=== PATIENT | male | born 1950 | race Caucasian/White ===

== ENCOUNTER → 2017-02-28 | Outpatient (CLI) | payer OTHER ==
[2017-02-28 12:40] LABS: BASO % 0.5 %; BASO ABS # 0.02 K/uL (0-0.2); COMPLETE YES; EOS % 4.5 %; HEMATOCRIT 36.8 % (42-52); IG% 0.2 %; LYMPH % 35.7 %; LYMPH ABS # 1.58 K/uL (1.2-3.4); MEAN CELL VOLUME 83.8 fL (80-100); MEAN CORPUSCULAR HGB CONC 33.4 g/dl (32-36); MEAN PLATELET VOLUME 9.9 fL (7.4-10.4); MONO % 11.1 %; PLATELET COUNT 261 K/uL (130-400); RED BLOOD COUNT 4.39 M/uL (4.7-6.1); WHITE BLOOD COUNT 4.42 K/uL (4.8-10.8)
[2017-02-28 13:02] LABS: ALT/SGPT 32 U/L (12-78); AST/SGOT 22 U/L (15-37); BLOOD UREA NITROGEN 23 mg/dl (7-18); BUN/CREATININE RATIO 19.3 (10-20); CARBON DIOXIDE 23 mmol/L (21-32); CHLORIDE 108 mmol/L (98-107); CHOLESTEROL 159 mg/dl (0-200); GLUCOSE 128 mg/dl (70-99); POTASSIUM 4.1 mmol/L (3.5-5.1); SODIUM 142 mmol/L (136-145); TRIGLYCERIDES 134 mg/dl (0-150); VERY LOW DENSITY LIPOPROT CALC 27 mg/dl
[2017-02-28 13:08] LABS: CALCIUM 8.9 mg/dl (8.5-10.1)
[2017-02-28 13:13] LABS: ALKALINE PHOSPHATASE 75 U/L (45-117); HDL CHOLESTEROL 53 mg/dl
[2017-02-28 13:29] LABS: ESTIMATED AVERAGE GLUCOSE 134 mg/dl; HA1C FLAG Normal (Normal)
== END | disposition home or self-care (01) ==
LOC: C.LABSPEC 12:14
PROVIDERS: ATTEND Internal Medicine
DX: R73.9 Hyperglycemia, unspecified (principal); E78.5 Hyperlipidemia, unspecified; M19.90 Unspecified osteoarthritis, unspecified site; E04.2 Nontoxic multinodular goiter

== ENCOUNTER → 2017-03-21 | Outpatient (CLI) | payer OTHER ==
--- NOTE | 2017-03-21 16:20 | ECHOCARDIOGRAM REPORT ---
*NOTICE TO RECEIVING CONSTITUTION PARTY AGENCY This information is strictly Confidential and protected under [place] law. [place] law prohibits you from making any further disclosure of this information unless further disclosure is expressly permitted by the written consent of the person to whom it pertains or is authorized by law. A general authorization for the release of medical or other information is not sufficient for this purpose. Hospital accepts no responsibility if the information is made available to any other person, INCLUDING THE PATIENT. Interpretation Summary * Name: CHRIS ALLRED Study Date: 03/21/2017 12:57 PM BP: 148/76 mmHg * Patient Location: [facility] HR: 69 * : 1950 (M/d/yyyy) Gender: Male Height: 69 in * Age: 66 yrs Ethnicity: CA Weight: 168 lb * Ordering Physician: Pete Jacobs * Referring Physician: Pete Jacobs * * BSA: 1.9 m2 * -- Conclusions -- * Left ventricular systolic function is normal. * No regional wall motion abnormalities noted. * Ejection Fraction = 65-70%. * There is mild concentric left ventricular hypertrophy. * Grade I diastolic dysfunction, (abnormal relaxation pattern). * Moderate valvular aortic stenosis. * Aortic valve area calculated at 1.1 cm2 by the continuity equation. * Mild aortic regurgitation. * Compared with 03/15/2016 study, no significant change. Procedure Details * Left Ventricle The left ventricle is normal in size. There is mild concentric left ventricular hypertrophy. Ejection Fraction = 65-70%. Left ventricular systolic function is normal. No regional wall motion abnormalities noted. * Right Ventricle The right ventricle is grossly normal size. The right ventricular systolic function is normal as assessed by tricuspid annular plane systolic excursion (TAPSE) (normal >1.5 cm). * Atria The left atrial size is normal. Right atrial size is normal. There is no evidence of atrial septal defect, but resolution does not allow assessment for a patent foramen ovale. * Mitral Valve The mitral valve is normal in structure and function. There is no mitral valve stenosis. Significant mitral regurgitation is absent. * Tricuspid Valve The tricuspid valve is normal in structure and function. There is no tricuspid stenosis. Significant tricuspid regurgitation is absent. * Aortic Valve Moderate valvular aortic stenosis. Aortic valve area calculated at 1.1 cm2 by the continuity equation. Mild aortic regurgitation. * Pulmonic Valve The pulmonary valve is not well seen, but the Doppler examination is normal without significant regurgitation or stenosis. * Great Vessels The aortic root is normal size. The pulmonary is not well visualized. * Pericardium/Pleural There is no pericardial effusion. * Great Vessels Normal inferior vena cava size and collapsability with sniff indicates a normal right atrial pressure of 3 mmHg * Left Ventricular Diastolic Function Grade I diastolic dysfunction, (abnormal relaxation pattern). * * MMode 2D Measurements and Calculations * IVSd 1.1 cm * * LVIDd 4.1 cm * LVIDs 2.5 cm * LVPWd 1.3 cm * * IVS/LVPW 0.82 * FS 39.3 % * EDV(Teich) 73.6 ml * ESV(Teich) 21.9 ml * EF(Teich) 70.3 % * * EDV(cubed) 68.2 ml * ESV(cubed) 15.3 ml * EF(cubed) 77.6 % * * LV mass(C)d 167.0 grams * LV mass(C)dI 87.1 grams/m\S\2 * * SV(Teich) 51.7 ml * SI(Teich) 27.0 ml/m\S\2 * SV(cubed) 52.9 ml * SI(cubed) 27.6 ml/m\S\2 * * Ao root diam 3.2 cm * Ao root area 8.1 cm\S\2 * * LVOT diam 2.0 cm * LVOT area 3.0 cm\S\2 * * LVAd ap4 34.8 cm\S\2 * LVLd ap4 9.2 cm * EDV(MOD-sp4) 110.5 ml * EDV(sp4-el) 112.3 ml * LVAs ap4 16.4 cm\S\2 * LVLs ap4 7.5 cm * ESV(MOD-sp4) 31.8 ml * ESV(sp4-el) 30.5 ml * EF(MOD-sp4) 71.2 % * EF(sp4-el) 72.9 % * * LVAd ap2 23.8 cm\S\2 * LVLd ap2 8.4 cm * EDV(MOD-sp2) 54.7 ml * EDV(sp2-el) 57.1 ml * LVAs ap2 13.8 cm\S\2 * LVLs ap2 6.6 cm * ESV(MOD-sp2) 25.0 ml * ESV(sp2-el) 24.3 ml * EF(MOD-sp2) 54.4 % * EF(sp2-el) 57.4 % * * LVLd %diff -90 % * EDV(MOD-bp) 82.3 ml * LVLs %diff -13.71 % * ESV(MOD-bp) 29.4 ml * EF(MOD-bp) 64.3 % * * SV(MOD-sp4) 78.7 ml * SI(MOD-sp4) 41.0 ml/m\S\2 * * SV(MOD-sp2) 29.8 ml * SI(MOD-sp2) 15.5 ml/m\S\2 * * SV(MOD-bp) 53.0 ml * SI(MOD-bp) 27.6 ml/m\S\2 * * SV(sp4-el) 81.8 ml * SI(sp4-el) 42.6 ml/m\S\2 * * SV(sp2-el) 32.8 ml * SI(sp2-el) 17.1 ml/m\S\2 * * * Doppler Measurements and Calculations * MV E max len 83.6 cm/sec * MV A max len 126.7 cm/sec * * MV E/A 0.66 * * MV dec time 0.28 sec * * Ao V2 max 287.8 cm/sec * Ao max PG 33.5 mmHg * Ao max PG (full) 26.6 mmHg * Ao V2 mean 217.3 cm/sec * Ao mean PG 22.3 mmHg * Ao mean PG (full) 18.2 mmHg * Ao V2 VTI 71.7 cm * GIANA(I,A) 1.3 cm\S\2 * GIANA(I,D) 1.3 cm\S\2 * GIANA(V,A) 1.4 cm\S\2 * GIANA(V,D) 1.4 cm\S\2 * * AI max len 429.7 cm/sec * AI max PG 73.8 mmHg * AI dec slope 328.6 cm/sec\S\2 * AI P1/2t 382.9 msec * * LV V1 max PG 6.9 mmHg * LV V1 mean PG 4.1 mmHg * * LV V1 max 131.6 cm/sec * LV V1 mean 94.4 cm/sec * LV V1 VTI 30.8 cm * * SV(Ao) 579.6 ml * SI(Ao) 302.2 ml/m\S\2 * SV(LVOT) 92.4 ml * SI(LVOT) 48.2 ml/m\S\2 * *
== END | disposition home or self-care (01) ==
LOC: C.CPL 12:43
PROVIDERS: ATTEND Internal Medicine
DX: I35.0 Nonrheumatic aortic (valve) stenosis (principal)

== ENCOUNTER → 2017-08-23 | Outpatient (CLI) | payer OTHER ==
[2017-08-23 12:55] LABS: ESTIMATED AVERAGE GLUCOSE 131 mg/dl; HA1C FLAG Normal (Normal)
[2017-08-23 13:35] LABS: ALT/SGPT 33 U/L (12-78); AST/SGOT 17 U/L (15-37); BLOOD UREA NITROGEN 19 mg/dl (7-18); BUN/CREATININE RATIO 17.7 (10-20); CALCIUM 8.4 mg/dl (8.5-10.1); CARBON DIOXIDE 25 mmol/L (21-32); CHLORIDE 108 mmol/L (98-107); CREATININE 1.05 mg/dl (0.60-1.40); GLUCOSE 117 mg/dl (70-99); POTASSIUM 3.8 mmol/L (3.5-5.1); SODIUM 139 mmol/L (136-145)
[2017-08-23 13:47] LABS: ALB/GLOB RATIO 0.9 (0.9-2); ALKALINE PHOSPHATASE 78 U/L (45-117); CHOLESTEROL 161 mg/dl (0-200); CHOLESTEROL/HDL RATIO 2.6; HDL CHOLESTEROL 63 mg/dl; TRIGLYCERIDES 142 mg/dl (0-150); VERY LOW DENSITY LIPOPROT CALC 28 mg/dl
[2017-08-23 15:12] LABS: THYROXINE (T4) 6.4 mcg/dl (4.5-10.9)
== END | disposition home or self-care (01) ==
LOC: C.LABSPEC 12:06
PROVIDERS: ATTEND Internal Medicine
DX: E78.5 Hyperlipidemia, unspecified (principal); R73.9 Hyperglycemia, unspecified; E04.2 Nontoxic multinodular goiter

== ENCOUNTER → 2018-01-31 | Outpatient (CLI) | payer OTHER | END | disposition home or self-care (01) | LOC: C.PATHSPEC 17:50 | PROVIDERS: ATTEND Plastic Surgery | DX: L82.1 Other seborrheic keratosis (principal); D18.01 Hemangioma of skin and subcutaneous tissue ==

== ENCOUNTER 2023-07-11 09:24 | Observation (INO) ==
--- NOTE | 2023-06-14 12:03 | PAT Medication Instructions ---
Medication Instructions Date of Service June 14, 2023 Home Medications Medication Instructions Recorded sumatriptan succinate 50 mg tablet See Rx Instructions PO .COMPLEX 10/05/22 #10 tabs atorvastatin 40 mg tablet 40 mg PO HS #90 tabs 01/02/23 cholecalciferol (vitamin D3) 50 mcg (2,000 unit) capsule 2,000 unit PO QAM coenzyme Q10 50 mg capsule 50 mg PO QAM multivitamin (Daily Multi-Vitamin tablet) 1 tab PO QAM glucosamine-chondroitin 250 mg-200 mg tablet (Osteo Bi-Flex) 1 tab PO QAM saw palmetto 450 mg capsule 450 mg PO QAM turmeric 400 mg capsule 400 mg PO QAM vitamin B complex 1 tab PO QAM aspirin 81 mg tablet 81 mg PO QAM sumatriptan succinate 50 mg tablet See Rx Instructions PO .COMPLEX atorvastatin 40 mg tablet 40 mg PO HS krill 1,000 mg-omega-3 170 mg-dha 50 mg-epa 80 [id number] capsule (krill oil) 1 cap PO QAM omeprazole 20 mg capsule,delayed release 20 mg PO HS Continue as directed sumatriptan succinate 50 mg tablet See Rx Instructions PO .COMPLEX STOP taking 2 weeks before surgery (or as soon as possible if surgery is within 2 weeks) coenzyme Q10 50 mg capsule 50 mg PO QAM glucosamine-chondroitin 250 mg-200 mg tablet (Osteo Bi-Flex) 1 tab PO QAM saw palmetto 450 mg capsule 450 mg PO QAM turmeric 400 mg capsule 400 mg PO QAM krill 1,000 mg-omega-3 170 mg-dha 50 mg-epa 80 [id number]-[id number] capsule (krill oil) 1 cap PO QAM DO NOT take the morning of surgery cholecalciferol (vitamin D3) 50 mcg (2,000 unit) capsule 2,000 unit PO QAM multivitamin (Daily Multi-Vitamin tablet) 1 tab PO QAM vitamin B complex 1 tab PO QAM Take morning of surgery With a small sip of water, OTHERWISE NOTHING TO EAT OR DRINK AFTER MIDNIGHT: aspirin 81 mg tablet 81 mg PO QAM (unless directed otherwise by surgeon) Take evening before surgery atorvastatin 40 mg tablet 40 mg PO HS omeprazole 20 mg capsule,delayed release 20 mg PO HS Other Notes If you have any questions please call us at [phone] or [phone] or [phone] or [phone]
--- NOTE | 2023-06-15 12:01 | Anesthesiology Consultation ---
Date of Service June 15, 2023 Assessment & Plan (1) Encounter for pre-operative examination: - Infectious disease screening: Per assessment on 06/15/23: No known infectious disease contacts or current infectious disease symptoms. No noted Covid positive test result in past 90 days. - Outpatient joint assessment: Pt currently scheduled for inpatient pathway. If surgeon requests review for outpatient joint pathway, patient is not recommended candidate for outpatient joint program from anesthesia standpoint. - Cardiology visit (02/21/23): "S/P aortic valve replacement.. in setting of severe ; TAVR 11/2020 [facility].. Nonobstructive CAD.. Dyslipidemia.. Patient is doing well from a cardiac standpoint. Recent echocardiogram with appropriately functioning TAVR. He remains active without limiting cardiac symptoms. On exam today appears well perfused without signs of heart failure. Reviewed SBE prophylaxis. Continue ASCVD risk factor modification. Continue aspirin, statin." - Possible difficult intubation: Hx trach at age 8 d/t "throat infection", hospitalized for approximately a month (trach removed sometime during the hospitalization) Chart Review Chart Review: Acceptable Risk for Surgery and Patient seen in Pre Admission Testing Teaching & Discussion Pre-Anesthesia Teaching/Discussion Notes: Instructed NPO after midnight before surgery,except medications with 15 cc of water. Medication instructions provided according to the PAT guidelines. History Surgery Operation Date: 07/11/23 07:00 Proposed Procedures p Left Total Knee Arthroplasty - Delfino Nguyen MD Height/Weight Height: 5 ft 9 in Weight: 75.3 kg Allergies Allergy/AdvReac Type Severity Reaction Status Date / Time No Known Allergies Allergy Unknown Verified 06/14/23 11:17 Medications Home Medications Medication Instructions Recorded Confirmed Last Taken cholecalciferol (vitamin D3) 50 2,000 unit PO QAM 08/05/19 06/14/23 12/01/20 mcg (2,000 unit) capsule coenzyme Q10 50 mg capsule 50 mg PO QAM 10/09/20 06/14/23 12/01/20 multivitamin (Daily Multi-Vitamin 1 tab PO QAM 10/09/20 06/14/23 12/01/20 tablet) glucosamine-chondroitin 250 mg-200 1 tab PO QAM 11/27/20 06/14/23 12/01/20 mg tablet (Osteo Bi-Flex) saw palmetto 450 mg capsule 450 mg PO QAM 11/27/20 06/14/23 12/01/20 turmeric 400 mg capsule 400 mg PO QAM 11/27/20 06/14/23 12/01/20 vitamin B complex 1 tab PO QAM 11/27/20 06/14/23 12/01/20 aspirin 81 mg tablet 81 mg PO QAM 04/28/22 06/14/23 Unknown sumatriptan succinate 50 mg tablet See Rx Instructions PO .COMPLEX 10/05/22 06/14/23 Unknown #10 tabs atorvastatin 40 mg tablet 40 mg PO HS #90 tabs 01/02/23 06/14/23 Unknown krill 1,000 mg-omega-3 170 mg-dha 1 cap PO QAM 06/14/23 06/14/23 Unknown 50 mg-epa 80 [id number]-bxple capsule (krill oil) omeprazole 20 mg capsule,delayed 20 mg PO HS 06/14/23 06/14/23 Unknown release Past Medical History Medical History Acid reflux CAD (coronary artery disease) 2019 cardiac cath: Nonocclusive CAD (pLAD: 30%, OM1: 40%) Chronic anemia Degenerative arthritis of knee, bilateral Desmoid tumor of abdomen "benign" Enlarged thyroid History of aortic valve stenosis TAVR ([place], 2020) History of melanoma in situ s/p excision (in office) Hypercholesterolemia Osteoarthritis Exercise / Class Metabolic Activity II 4-5 Yardwork/Stairs/Walk up hill (one FS (no CP, no SOB)) Past Family History Family History Father Cancer Mother Natural Other No family history of adverse response to anesthesia Past Surgical History Surgical History History of abdominal surgery Desmoid tumor removal and partial colectomy ([facility], approximately 1993) History of arthroscopy of left knee History of arthroscopy of right knee History of cardiac cath 10/2019- Nonocclusive coronary artery disease (pLAD: 30%, OM1: 40%) History of colonoscopy with polypectomy History of esophagogastroduodenoscopy (EGD) History of repair of anterior cruciate ligament of right knee History of sigmoidoscopy History of tooth extraction History of tracheostomy as a child Trach at age 8 d/t "throat infection", hospitalized for approximately a month (trach removed sometime during the hospitalization) History of wisdom tooth extraction Hx of LASIK S/P aortic valve replacement TAVR (11/2020, [facility]) S/P thyroid biopsy Past Anesthesia History No Hx of Anesthesia Complications and No Family Hx of Anesthesia Complications History of PONV No Hx of PONV and Hx of Motion Sickness (Situational) Social History Smoking Status: Never smoker Do You Dip or Chew Tobacco: No Hx Alcohol Use: Yes ("once a month") Alcohol type: beer and wine alcohol intake frequency: a few times a month Hx Substance Use: No substance use type: does not use Review of Systems Patient denies chest pain, shortness of breath, dyspnea on exertion, fever, chills, cough, wheezing, palpitations. Physical Exam Vital Signs VITALS BP 150/87 P 94 TEMP 98.8 SP02 94%RA RESP 16 PHYSICAL Full cervical extension range of motion. Full TMJ range of motion. TMD 3 finger breaths Mallampati Score 1 + Trach scar noted Dentition: intact, upper right side bridge Lungs: clear throughout to auscultation Cardiac: regular rate and rhythm, II/ systolic murmur Spine: normal Carotid arteries: negative bruit Extremities: no LE edema Lab Results Anesthesia Preop Results Results Anesthesia Widget: WBC 5.26 K/ul (4.8-10.8) 06/15/23 Hgb 12.9 g/dl (14.0-18.0) L 06/15/23 Hct 39.7 % (42.0-52.0) L 06/15/23 Plt 207 K/uL (130-400) 06/15/23 Na 137 mmol/L (136-145) 06/15/23 K 4.1 mmol/L (3.5-5.1) 06/15/23 Cl 105 mmol/L (98-107) 06/15/23 CO2 27 mmol/L (21-32) 06/15/23 BUN 18 mg/dl (6-23) 06/15/23 Creat 1.24 mg/dl (0.6-1.4) 06/15/23 Glucose Level 131 mg/dl (70-99(Fasting)) H 06/15/23 PT 11.0 Seconds (9.0-12.0) 06/15/23 PTT 28.3 Seconds (21.0-31.0) 06/15/23 INR 1.0 (0.9-1.1) 06/15/23 Blood Type O Positive 06/15/23 Antibody Screen NEGATIVE 06/15/23 Testing Electrocardiogram Date: 07/27/22 Findings: + NSR @ (62) Chest X-Ray Date: 06/15/23 FINDINGS: No lines and tubes are seen. Calcified aortic knob is seen. Aortic valvular prosthesis is seen. The lungs are clear. No evidence of pleural effusion or pneumothorax. IMPRESSION: No acute chest disease. Echocardiogram Date: 02/06/23 LVEF 50-55%. No regional wall motion abnormality. Mild concentric LVH. Well- seated TAVR with expected transvalvular gradients. Mild paravalvular AI. Mild MR. Normal estimated PASP. Cardiac Catheterization Date: 11/05/19 Nonocclusive coronary artery disease (pLAD: 30%, OM1: 40%). Normal left heart filling pressures. Large, dominant RCA. On LVtoaorta pullback, the peakpeak gradient is 34 mmHg.
--- NOTE | 2023-07-08 08:26 | History & Physical Report ---
Date of Service July 08, 2023 Assessment & Plan (1) Degenerative arthritis of knee, bilateral: 73-year-old male with advanced bilateral knee DJD with a history of surgery on both knees in the past. He has failed conservative treatment. Does have a history of aortic valve replacement done a couple years ago at [place] and doing well from this. He is limited by his knee problem and would like to proceed with left knee replacement. Take him to the operating do left total knee replacement to the risks Mente this procedure explained the patient include but not limited to DVT PE infection neurological and vascular bleeding palm pain limb range of motion test is fairly of symptoms incomplete relief of symptoms need for further surgery in future exceptor. The patient understands and desires to proceed. Informed consent is obtained. As far as DVT prophylaxis we will plan on using aspirin twice a day. We will likely put some vancomycin in his cement due to the history of open knee surgery in this knee in the past. He is also diabetic. As far as discharge plans he is going to local PT. History of Present Illness Chief Complaint: . Persistent progressive bilateral knee pain discomfort left side greater than the right. Primary Care Provider: Carole Villareal MD . Patient is 72-year-old gentleman from [place] and long-term patient [facility] who presents for follow-up and treatment of his knees. Specifically he comes now for left knee replacement. Is got a long history of knee problems had a left knee open meniscectomy in the 80s. He had his right ACL reconstruction done many years out of town. Over the past several years he is developed increased pain discomfort in both knees. He has been to extensive conservative treatment to come less successful over time. The left knee bothers him more than the right. He enjoys playing golf and having difficulty doing this. He has pain going up and down stairs does get nighttime pain. He wears a brace which helps a little bit but still likely limits his pain. He now like to proceed with left knee replacement. Allergies Allergy/AdvReac Type Severity Reaction Status Date / Time No Known Allergies Allergy Unknown Verified 06/27/23 13:04 Home Medications Medication Instructions Recorded Confirmed Type cholecalciferol (vitamin D3) 50 2,000 unit PO QAM 08/05/19 06/27/23 History mcg (2,000 unit) capsule coenzyme Q10 50 mg capsule 50 mg PO QAM 10/09/20 06/27/23 History multivitamin (Daily Multi-Vitamin 1 tab PO QAM 10/09/20 06/27/23 History tablet) glucosamine-chondroitin 250 mg-200 1 tab PO QAM 11/27/20 06/27/23 History mg tablet (Osteo Bi-Flex) saw palmetto 450 mg capsule 450 mg PO QAM 11/27/20 06/27/23 History turmeric 400 mg capsule 400 mg PO QAM 11/27/20 06/27/23 History vitamin B complex 1 tab PO QAM 11/27/20 06/27/23 History aspirin 81 mg tablet 81 mg PO QAM 04/28/22 06/27/23 History sumatriptan succinate 50 mg tablet See Rx Instructions PO .COMPLEX 10/05/22 06/27/23 Rx #10 tabs krill 1,000 mg-omega-3 170 mg-dha 1 cap PO QAM 06/14/23 06/27/23 History 50 mg-epa 80 ek-fbsvfu-ytbxx capsule (krill oil) omeprazole 20 mg capsule,delayed 20 mg PO HS 06/14/23 06/27/23 History release atorvastatin 40 mg tablet 40 mg PO HS #90 tabs 06/29/23 Rx metformin 500 mg tablet 500 mg PO BID #60 tabs 06/29/23 Rx Past Med/Surg History Medical History Acid reflux CAD (coronary artery disease) 2019 cardiac cath: Nonocclusive CAD (pLAD: 30%, OM1: 40%) Chronic anemia Degenerative arthritis of knee, bilateral Desmoid tumor of abdomen "benign" Enlarged thyroid History of aortic valve stenosis TAVR ([place], 2020) History of melanoma in situ s/p excision (in office) Hypercholesterolemia Osteoarthritis Surgical History History of abdominal surgery Desmoid tumor removal and partial colectomy ([facility] [place], approximately 1993) History of arthroscopy of left knee History of arthroscopy of right knee History of cardiac cath 10/2019- Nonocclusive coronary artery disease (pLAD: 30%, OM1: 40%) History of colonoscopy with polypectomy History of esophagogastroduodenoscopy (EGD) History of repair of anterior cruciate ligament of right knee History of sigmoidoscopy History of tooth extraction History of tracheostomy as a child Trach at age 8 d/t "throat infection", hospitalized for approximately a month (trach removed sometime during the hospitalization) History of wisdom tooth extraction Hx of LASIK S/P aortic valve replacement TAVR (11/2020, [facility] [place]) S/P thyroid biopsy Family History Father Cancer Mother Natural Other No family history of adverse response to anesthesia Denies family history of Ovarian cancer Prostate cancer Myocardial infarction Breast cancer Colorectal cancer Social History Smoking Status: Never smoker Second Hand Exposure: No; Do You Dip or Chew Tobacco: No; Hx Alcohol Use: Yes ("once a month") Alcohol type: beer and wine Hx Substance Use: No Preferred Language: Serbian Communication Ability: Effective Visual Impairment: No Limitations Hearing Ability: Normal Manager Art Required: No Beliefs That Will Affect Care: None marital status: Current Living Situation: Spouse current occupational status: retired current occupation: former customer acquisition manager Feels Safe at Home: Yes Childhood Exposure to Second-Hand Smoke: Yes Diet: regular Dental Care, Regularly: Yes Physical Activity Frequency: Daily Seatbelt Use: always Sunscreen Use: Yes Assistive Devices: Glasses Review of Systems All systems reviewed & are unremarkable except as noted in HPI & below. Physical Exam . Physical examination was a pleasant healthy middle-age male. Examination of the left knee reveal patient ambulates independently. Good varus alignment to his knee. Skin well-healed oblique a medial incision. When he weightbears he has a varus thrust. Small knee effusion. Range of motion about 20 degrees short of full extension and 10 degrees of flexion. Fairly stiff knee. No pain with hip motion. Constitutional WD/WN, vitals as above Respiratory normal respiratory effort, lungs clear to auscultation Cardiovascular RRR, no murmur, no edema Gastrointestinal (Abdomen) normal bowel sounds, soft, nontender, no hepatosplenomegaly Results & Data Results & Data Laboratory Results . Diagnostic Findings . Radiographs of the left knee reveal advanced left knee DJD but is got complete loss of medial joint space. Is got loose bodies medially. He is got subchondral sclerosis. PG Care Time/CCT Total # of Minutes Spent Total Time Spent with Patient: Total time spent is greater than 50% in coordination of care (as documented) at patient's floor/unit and/or counseling patient: Coding Level of Care Code None Diagnoses Degenerative arthritis of knee, bilateral M17.0
[~2023-07-11 09:24] MED LIST: ACETAMINOPHEN 500 MG TAB PO SCH; BUPIVACAINE 0.5 % 5 MG/1 ML PF 10ML VIAL ONE; BUPIVACAINE LIPOSOME/PF 266 MG, BUPIVACAINE/EPINEPHRINE 50 ML, SODIUM CHLORIDE 0.9% PF ... INFIL SCH; CeleBREX 200 MG CAP PO SCH; FAMOTIDINE 20 MG TAB PO SCH; LR 500ML BOLUS, THEN 15ML/HR IV SCH; LR 60ML/HR IV SCH; METOCLOPRAMIDE HCL 10 MG TABLET PO SCH; ROPIVACAINE 0.5% 5 MG/ML 30 ML VIAL ONE; TRANEXAMIC ACID 1,000 MG **IV Intra-op IV SCH; ceFAZolin 2000MG 2,000 MG/15 ML SYR IV SCH; dexAMETHasone 4 MG TAB PO SCH; dexAMETHasone**PF** 10 MG/ML VIAL IV SCH
[2023-07-11] MEDS ORDERED: fentaNYL citrate PF 100 MCG/2 ML VIAL ONE (09:53)
[2023-07-11] MEDS ORDERED: MIDAZOLAM HCL 1 MG/ML 2ML VIAL ONE ×2 (09:53→11:11)
[2023-07-11] MEDS ORDERED: ONDANSETRON INJ 2 MG/ML 2 ML VIAL IV PRN ×2 (10:30→14:57)
[2023-07-11] MEDS ORDERED: ATROPINE SULFATE 0.1 MG/ML 10ML SYR IV PRN (10:30)
[2023-07-11] MEDS ORDERED: fentaNYL citrate PF 100 MCG/2 ML VIAL IV PRN (10:30)
[2023-07-11] MEDS ORDERED: ePHEDrine sulfate 50 MG/ML AMP IV PRN (10:30)
--- NOTE | 2023-07-11 10:59 | History & Physical Bridge Note ---
Date of Service July 11, 2023 History & Physical Bridge Note I have examined the patient, reviewed the History & Physical and in the interval since the performance of the History & Physical I have noted the following changes of clinical significance: no changes noted
[2023-07-11] MEDS ORDERED: VANCOMYCIN HCL 1000MG/20ML VIAL ONE (11:01)
[2023-07-11] MEDS ORDERED: BUPIVACAINE/EPINEPHRINE 0.25% 1:200,000 30 ML VIAL ONE (11:01)
[2023-07-11] MEDS ORDERED: SODIUM CHLORIDE 0.9% PF 50 ML VIAL ONE (11:01)
[2023-07-11] MEDS ORDERED: BUPIVACAINE LIPOSOME 1.3% 266 MG/20 ML VIAL ONE (11:02)
[2023-07-11] MEDS ORDERED: PROPOFOL IV EMULSION 10 MG/ML 20 ML VIAL IV ONE (11:03)
[2023-07-11] MEDS ORDERED: PHENYLEPHRINE 100MCG/ML 5ML SYR ONE (12:43)
--- NOTE | 2023-07-11 13:01 | Operative Report ---
PG Post Operative Report Pre & Post Diagnosis Operation Date: 07/11/23 10:40 Pre-Op Diagnosis: Left knee degenerative joint disease. Post-Op Diagnosis: Left knee degenerative joint disease. I identified the patient and participated in the time-out.: Yes Procedure Operation Date: 07/11/23 10:40 Actual Procedures p Left Total Knee Arthroplasty(Left) - Delfino Nguyen MD Surgeon Delfino Nguyen MD [employer] Jose L Carter PA-C Estimated Blood Loss 50 Findings Consistent with Post-Op Diagnosis Operative findings revealed advanced left knee DJD. Extensive grade 4 [id number] disease of the anteromedial compartment. Chronic ACL deficiency. He had a varus deformity and slight flexion contracture. Moderate-sized joint effusion. Specimens Left knee sent for pathology Anesthesia Type Spinal MAC Complications none Disposition Accompanied Patient To Recovery: No Indications Patient is a 73-year-old very active healthy gentleman said a long history of knee problems. He had a injury to his knee many years ago had an open meniscectomy in the 80s. He is continue to develop progressive pain and discomfort in his knee. He failed conservative measures. He elected proceed with total knee arthroplasty. Description of Procedure Operative implants consist of: 1 Biomet Vanguard size 67.5 left posterior stabilized femoral component. 2. Biomet size 75 tibial tray. 3. 10 mm post stabilized polyethylene insert. 4. 31 x 8 all poly patella. The patient was taken the operating, identified, placed on the operating table supine position architectures were properly padded. IV antibiotics tried by anesthesia team. Spinal anesthetic and abductor canal block had been provided in the holding area. Left thigh turn was then placed to the left lower ext remities and prepped draped in usual sterile fashion. The left leg was elevated exsanguinated with use of an Esmarch in terms playset 3 mmHg. An anterior posterior left knee was then performed to longitudinal incision centered over the patella. Sharp dissection carried through subcutaneous tissue down the extensor mechanism. Medial parapatellar incision was made. Some subperiosteal dissection was carried out medially. We did a pretty extensive dissection medially due to his varus deformity and slight flexion contracture. Fat pad was resected. Patella subluxated laterally and the lateral patellofemoral ligament was released. The ACL was absent. The PCL was released from distal femur and the tibia subluxated anteriorly. The external tibial alignment jig was then placed in the interface the tibia and adjusted 14 mm medially. Proximal tibial cut was made just slightly above the most deficient aspect of the posterior medial tibial plateau. He had pretty extensive wear pattern posterior medially. Some osteophytes taken off medially. The tibia was then sized to a size 75. Attention drawn the femur. The distal femur examined the sharp drill. Intramedullary canal was suction. A 6 degree left valgus cutting guide was placed. Distal femoral cutting block was pinned in place. Distal femoral cut was made to take an additional 3 mm of bone off distal femur. The femur was then sized to a size 67.5. The AP cutting block was pinned parallel to the epicondylar axis which was 5 degrees of external rotation. The anterior cut, anterior chamfer, posterior cut, posterior chamfer cuts were made. The box cutting guide was placed in just slight lateral box cut was made. The knee was flexed. The remnants of the medial and lateral menisci were excised. The osteophytes taken off the posterior aspect of the femur. A trial femoral component was placed. Tibial tray was pinned in maximum external rotation and the drill and stem punch used to create defect in proximal tibia for the tibial tray. The knee was then trialed and the 10 mm insert fit most appropriately. Attention drawn the patella. Was cleaned of all soft tissue. Patella thickness measured 23 mm in thickness was cut down to 14. Was sized to a size 31 patella. The lug holes were drilled for the 31 patella. The lateral osteophytes removed. Patella button was placed. Knee was taken through range of motion patella tracked nicely with no thumbs test. Attention drawn to placing permanent components. Nupathe all trial components were removed. Bone plug was placed in the distal femur limit blood loss. A double batch Palacos G cement was mixed. I did add an additional gram of vancomycin to the into his cement due to his history of diabetes and previous open knee surgery in the past. BiomHeliosguard size 67.5 left posterior stabilized femoral component, size 75 tibial tray, 10 mm post stabilized polyethylene insert, and a 31 x 8 all poly patella then cemented in place. Knee was brought out in full extension till cement hardened. Final cement check was then performed. The pericapsular tissues were injected with a total of 100 cc of combination of 20 cc of Exparel, 30 cc normal saline, 50 cc of quarter percent Marcaine with epinephrine. Patient did receive 1 g tranexamic acid. The tourniquet was then let down for final tourniquet time 57 minutes. Hemostasis assured use electrocautery. Extensor mechanism then closed with combination #1 PDS suture #1 Vicryl suture in [id number] fashion. Extensor mechanism checked found to be intact the subcutaneous tissues then cl osed with 2 Dexon suture in a buried erupted fashion skin was closed skin judith. Leg was then cleaned and dried and a sterile dressing with Xeroform, 4 fours, sterile cast padding, Chema bandage were applied. Patient then transferred to the recovery room in stable condition. Patient tolerated procedure well and there were no complications. I attest to the content of the Intraoperative Record and any orders documented therein. Any exceptions are noted below.
--- NOTE | 2023-07-11 13:44 | XRay Report ---
XR knee LT 1 or 2V routine CLINICAL HISTORY: Surgical Post Op TECHNIQUE: 2 views of the left knee were obtained. Comparison: None available at the time of this dictation. FINDINGS: Patient is status post total knee arthroplasty with expected postsurgical changes including soft tiss ue swelling and subcutaneous emphysema. No periarticular lucency or hardware fracture is seen. IMPRESSION: Expected postoperative appearance status post placement of total knee arthroplasty. ACT 112: Negative or not required by law. Electronically signed by: Enrique Barnett M.D. 07/11/2023 1:42 PM
[2023-07-11] MEDS ORDERED: GLUCOSE 40% GEL 15 GM TUBE PO PRN (14:57)
[2023-07-11] MEDS ORDERED: MAGNESIUM HYDROXIDE SUSP 30 ML UDC PO PRN (14:57)
[2023-07-11] MEDS ORDERED: PHARMACY GLYCEMIC MGMT CONSULT PRN (14:57)
[2023-07-11] MEDS ORDERED: oxyCODONE HCL IR 5 MG TAB (IMMEDIATE RELEASE) PO PRN (14:57)
[2023-07-11] MEDS ORDERED: METOCLOPRAMIDE HCL INJ 5 MG/ML 2 ML VIAL IV PRN (14:57)
[2023-07-11] MEDS ORDERED: SUMAtriptan succinate 50 MG TAB PO PRN (14:57)
[2023-07-11] MEDS ORDERED: CARBOHYDRATES FOR HYPOGLYCEMIA PO PRN (14:57)
[2023-07-11] MEDS ORDERED: NALOXONE HCL 0.4 MG/1 ML VIAL/CARP IV PRN (14:57)
[2023-07-11] MEDS ORDERED: HYDROmorphone INJ 0.5 MG/0.5 ML SYR IV PRN (14:57)
[2023-07-11] MEDS ORDERED: GLUCAGON FOR INJ 1 MG VIAL SQ PRN (14:57)
[2023-07-11] MEDS ORDERED: DEXTROSE 50% 50 ML SYRINGE IV PRN (14:57)
[2023-07-11] MEDS ORDERED: GLUCOSE 10 TAB/TUBE PO PRN (14:57)
[2023-07-11] MEDS ORDERED: ALUMINUM/MAGNESIUM SUSP 30 ML UDC PO PRN (14:57)
[2023-07-11] MEDS ORDERED: bisacodyL 10 MG SUPP PR PRN (14:57)
--- NOTE | 2023-07-11 15:14 | Anesthesiology Progress Note ---
Date of Service July 11, 2023 Anesthesia Post Procedure Vital Signs Vital Signs: Temp Pulse Pulse Resp BP Pulse Ox O2 Del Method 07/11/23 15:00 98.1 F 88 18 144/86 H 97 Nasal Cannula 07/11/23 14:40 97.5 F L 87 18 144/91 H 96 Nasal Cannula 07/11/23 14:30 90 13 138/86 96 Nasal Cannula 07/11/23 14:20 86 13 134/82 96 Nasal Cannula 07/11/23 14:10 84 18 143/78 H 97 Nasal Cannula 07/11/23 14:00 86 16 121/67 91 Room Air 07/11/23 13:50 88 17 119/75 91 Room Air 07/11/23 13:40 85 18 124/75 94 Room Air 07/11/23 13:30 88 15 123/66 94 Room Air 07/11/23 13:20 86 19 104/65 97 Oxymask 07/11/23 13:10 84 20 106/49 L 97 Oxymask 07/11/23 13:03 98.2 F 85 18 92/46 L 96 Oxymask 07/11/23 10:31 88 20 163/93 H 98 Room Air 07/11/23 09:42 97.7 F 102 H 20 162/102 H 95 Room Air O2 Flow Rate 07/11/23 15:00 1 07/11/23 14:40 2 07/11/23 14:30 2 07/11/23 14:20 2 07/11/23 14:10 2 07/11/23 14:00 07/11/23 13:50 07/11/23 13:40 07/11/23 13:30 07/11/23 13:20 4 07/11/23 13:10 4 07/11/23 13:03 4 07/11/23 10:31 07/11/23 09:42 Transfer of Care Handoff Completed per policy Notes Mental Status: alert / awake / arousable and participated in evaluation Patient Amnestic to Procedure: Yes Nausea / Vomiting: adequately controlled Pain: adequately controlled Airway Patency, RR, SpO2: stable & adequate BP & HR: stable & adequate Hydration State: stable & adequate Neuraxial Anesthesia: was administered and sensory block is resolving Anesthetic Complications: no major complications apparent and Pt Satisfied with anesthetic care
[2023-07-11] MEDS: SODIUM CHLORIDE 0.9% 1,000 ML IV SCH (15:22)
[2023-07-11] MEDS: ACETAMINOPHEN 500 MG TAB PO SCH ×2 (15:33→20:24)
[2023-07-11] MEDS: KETOROLAC TROMETHAMINE 15 MG/ML VIAL IV SCH ×2 (15:34→20:25)
[2023-07-11] MEDS ORDERED: NovoLIN-N (NPH) PER UNIT CHARGE SQ ONE (16:30)
[2023-07-11] MEDS: ASCORBIC ACID 500 MG TAB PO SCH (16:54)
[2023-07-11] MEDS: INSULIN ASPART PER UNIT CHARGE SC SCH ×2 (17:11→21:19)
[2023-07-11] MEDS: ceFAZolin 1000MG 1,000 MG/7.5 ML SYR IV SCH (18:36)
[2023-07-11] MEDS ORDERED: TRANEXAMIC ACID / 0.7% NACL 1,000 MG/100 ML BAG IV SCH (19:00)
[2023-07-11] MEDS: ASPIRIN 81 MG ECTAB PO SCH (20:26)
[2023-07-11] MEDS: DOCUSATE SODIUM 100 MG CAP PO SCH (20:27)
[2023-07-11] MEDS: SENNA 8.6 MG TAB PO SCH (20:27)
[2023-07-11] MEDS ORDERED: SENNA 8.6 MG TAB PO SCH (21:00)
[2023-07-11] MEDS ORDERED: PANTOprazole 40 MG TAB PO SCH (21:00)
[2023-07-11] MEDS ORDERED: ATORVASTATIN 40 MG TAB PO SCH (21:00)
[2023-07-12] MEDS: SODIUM CHLORIDE 0.9% 1,000 ML IV SCH (01:45)
[2023-07-12] MEDS: ceFAZolin 1000MG 1,000 MG/7.5 ML SYR IV SCH (01:47)
[2023-07-12] MEDS: KETOROLAC TROMETHAMINE 15 MG/ML VIAL IV SCH ×2 (01:47→08:07)
[2023-07-12] MEDS ORDERED: dexAMETHasone 4 MG TAB PO SCH (08:00)
[2023-07-12] MEDS: ASPIRIN 81 MG ECTAB PO SCH (08:04)
[2023-07-12] MEDS: MULTIVITAMIN TAB PO SCH ×2 (08:04→09:06)
[2023-07-12] MEDS: SENNA 8.6 MG TAB PO SCH ×2 (08:05→08:22)
[2023-07-12] MEDS: DOCUSATE SODIUM 100 MG CAP PO SCH ×2 (08:06→08:21)
[2023-07-12] MEDS: ACETAMINOPHEN 500 MG TAB PO SCH (08:06)
[2023-07-12] MEDS: ASCORBIC ACID 500 MG TAB PO SCH (08:06)
[2023-07-12 08:08] LABS: Hematocrit (blood only) 29.8 % (42.0-52.0); Mean Corpuscular Hemoglobin 27.6 pg (25.0-34.0); Mean Corpuscular Hgb Conc 33.6 g/dL (32.0-36.0); Mean Corpuscular Volume 82.3 fL (80.0-100.0); Mean Platelet Volume 9.6 fL (9.4-12.4); Platelet Count 208 K/uL (130-400); RDW Coefficient of Variation 12.9 % (11.5-14.5); RDW Standard Deviation 39.3 fL (36.4-46.3); Red Blood Count 3.62 M/uL (4.70-6.10)
[2023-07-12] MEDS: INSULIN ASPART PER UNIT CHARGE SC SCH ×2 (08:17→12:18)
[2023-07-12 08:26] LABS: BUN Creatinine Ratio 23.6 (10-20); Calcium 8.5 mg/dl (8.6-10.3); Creatinine Clr Calc Pharmacy 53.5 ml/min; Est GFR (African American) 67.1 ml/min; Est GFR (Non-African American) 57.9 ml/min; Potassium 4.1 mmol/L (3.5-5.1)
[2023-07-12] MEDS ORDERED: MULTIVITAMIN TAB PO SCH (09:00)
[2023-07-12] MEDS ORDERED: NON-FORMULARY MEDICATION (Turmeric 400 mg Capsule) PO SCH (09:00)
[2023-07-12] MEDS ORDERED: NON-FORMULARY MEDICATION (Saw Palmetto 450 mg Capsule) PO SCH (09:00)
[2023-07-12] MEDS ORDERED: TAMSULOSIN HCL 0.4 MG CAP PO SCH (09:00)
[2023-07-12] MEDS ORDERED: NON-FORMULARY MEDICATION (Krill-Om-3-Dha-Epa-Phospho-Ast [Krill Oil] 1,000-170-50-80 mg Ca PO SCH (09:00)
[2023-07-12] MEDS ORDERED: VITAMIN B COMPLEX TAB PO SCH (09:00)
[2023-07-12] MEDS ORDERED: CHOLECALCIFEROL 1,000 UNITS 25 MCG TAB PO SCH (09:00)
[2023-07-12] MEDS ORDERED: NovoLIN-N (NPH) PER UNIT CHARGE SC ONE (09:00)
--- NOTE | 2023-07-12 11:15 | Pharmacy Report ---
Pharmacy Glycemic Short Note 2 - Date of Service July 12, 2023 - Glycemic Short BSG Results (Last 24 hours): 07/11/23 07/11/23 07/12/23 16:51 20:49 07:32 Glucose POC Glucose 161 H 166 H 129 H 07/12/23 07:50 Glucose 118 H POC Glucose OUTPATIENT ANTIDIABETIC REGIMEN: * metformin 500 mg PO BID * HbA1C = 6.7% (06/26/23) ASSESSMENT: * Mr Arana is a 73 y/o M with a PMH of T2DM who presents for L TKA. Patient is currently POD 1. * Yesterday (POD 0), preop BSG was 126 and postop BSGs were 161-166 mg/dL. Patient received 19 units of insulin (15 units of NPH and 4 units of bolus). * Patient received 10 mg IV dexamethasone preop. Patient to receive dexamethasone 8 mg PO today (POD 1). * Will give NPH 25 units (0.25 units/kg) to cover steroid induced hyperglycemia. * Tighten CR to weight-based stress of 3. PLAN FOR INPATIENT GLYCEMIC CONTROL: * Hold outpatient oral diabetes medications * Basal insulin * NPH 25 units SQ x 1 * Bolus insulin * NovoLog per scale ACHS or Q6hrs while NPO * Goal Range: Low 110 mg/dL - High 140 mg/dL * Correction Factor: 25 mg/dL/unit * Nutritional / Prandial insulin per carb ratio of 1 unit per 7 grams CHO consumed
--- NOTE | 2023-07-12 11:24 | Surgery Progress Note ---
Date of Service July 12, 2023 Assessment & Plan (1) Status post left knee replacement: Plan: 73-year-old gentleman postop day 1 from left knee replacement doing well. Pain is controlled. He is neurologically intact. Hoping to go home. Plan: 1. DVT prophylaxis including thigh-high teds, SCDs, aspirin twice a day. 2. PT OT. Weight-bear as tolerated left total knee protocol. He did well in therapy today. 3. Pain control doing okay with current pain regimen. 4. Disposition plan to discharge home today. He is going to outpatient therapy. Admission and Anticipated Discharge Date Admission Date: July 11, 2023 Subjective 73-year-old gentleman postop day 1 from left knee replacement. He is doing quite well. Pain is controlled. Good night. Therapy went well. No chest pain or shortness of breath. Not feeling dizzy or lightheaded. Hoping to go home. Physical Exam Physical Exam: Physical exam shows a pleasant middle-age male. He is sitting up in bed and looks quite comfortable this morning. Examination of the left leg reveals the dressing clean dry and intact. His leg is well aligned he can do a straight leg raise. Can dorsiflex and plantarflex his foot appropriately. He is neurologically intact. Respiratory: normal respiratory effort, lungs clear to auscultation Cardiovascular: RRR, no murmur, no edema Gastrointestinal (Abdomen): normal bowel sounds, soft, nontender, no hepatosplenomegaly Results & Data Vital Signs (Past 12 Hours) Vital Signs Temp Pulse Resp BP Pulse Ox O2 Del Method 07/12/23 07:33 36.9 C 79 18 148/74 H 97 Room Air 07/12/23 01:52 36.7 C 85 16 144/87 H 96 Room Air Laboratory Results Hemoglobin is 10.0. Hematocrit is 29.8. Electrolytes are stable. PG Care Time/CCT Total # of Minutes Spent Total Time Spent with Patient: Total time spent is greater than 50% in coordination of care (as documented) at patient's floor/unit and/or counseling patient: Coding Level of Care Code 71442 Post Operative Follow-Up Diagnoses Status post left knee replacement Z96.652
--- NOTE | 2023-07-15 16:21 | Discharge Summary ---
Date of Service July 15, 2023 Discharge Data Procedures Performed Operation Date: 07/11/23 10:40 Actual Procedures p Left Total Knee Arthroplasty(Left) - Delfino Nguyen MD Hospital Course (1) Status post left knee replacement: This is a 73 year old patient admitted on 07/11/23 and underwent total knee arthroplasty. He tolerated the procedure well and there were no complications. Transferred to the PACU post op and later to the orthopedic floor for further care. He was given ancef for antibiotic prophylaxis. He was also given YUMIKO stockings, SCDs, and aspirin for DVT prophylaxis. Hemoglobin, hematocrit, and vital signs were monitored during his hospital stay and remained stable. Did not require any blood transfusions. There were no complications during his hospital stay. By post op day #1 the patient was tolerating a diabetic diet, pain was reasonably controlled with oral pain medicine, and he was participating in physical therapy. On post op day #1 the patient was discharged home. He was given printed discharge instructions including prescriptions for extra strength tylenol, aspirin, cefadroxil, ketorolac, zofran, oxycodone, flomax, and senokot. Continue physical therapy, weight bearing as tolerated. Continue YUMIKO stockings. Follow up approximately 2 weeks post op or sooner if there are problems or concerns. Coding Level of Care Code None Diagnoses Status post left knee replacement Z96.652
== END 2023-07-12 13:33 | disposition home or self-care (01) ==
LOC: 3E 09:24 → ASU 09:24